=== PATIENT | female | born 1990 | race Caucasian/White ===

== ENCOUNTER 2019-02-04 11:53 | Emergency (ER) | payer OTHER, BC, SELFPAY ==
[2019-02-04 11:54] VITALS: BP 164/90; PULSE 81; RESP 16; TEMP 36.4; O2SAT 99; BMI 41.0
--- NOTE | 2019-02-04 12:40 | ED.DCSUM_ITS ---
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 [employer] cat bit her left hand she merely washed her hand she is brought to hospital for evaluation, no past edition of the complaints tetanus is up-to-date Physical Examination: [] Vital signs within normal range afebrile General, no distress resting comfortably HEENT is generally unremarkable The neck is supple no adenopathy Cardiovascular, regular rate and rhythm Lungs, clear bilateral Abdomen, soft nontender Extremities, muscle surface of left hand there are scattered abrasions are made there may be one tiny puncture hand functions fully normal neurovascular function is normal as well no signs of active infection no neuro tenderness injury Neurologic, awake alert answering questions appropriately moving all 4 extremities Test Results: [] Emergency Department Course and Treatment: [] Given all of the above x-rays were ordered, but she refused x-ray, we cleansed the wound had and the patient irrigate wash with soap, she started on doxycycline clindamycin at her request due to intolerance to Augmentin she is familiar with the concept of deep-seated infection other complication Bites she is referred to [facility] and her family physicians for further management Treatment Plan: [] Disposition: [] Home stable Impression: [] cat bite left hand This note was generated with [employer] dictation software. It may contain incorrect words, spelling, and punctuation that were not noted in review of the chart prior to signing ED Disposition - Plan for ED Patient: Instructions: ED Bite Cat Prescriptions: Doxycycline 100 mg PO BID #20 cap Clindamycin HCl [Cleocin] 300 mg PO Q6H #40 cap Referrals: NOT,DEFINED [Primary Care Provider] -
--- NOTE | 2019-02-04 13:00 | ED.RN ---
PT REFUSED HAND XRAY.
[2019-02-04] MEDS: Clindamycin HCl 150 MG Capsule 300 MG PO (14:34)
[2019-02-04] MEDS: Doxycycline 100 MG CAPSULE PO (14:34)
== END 2019-02-04 14:38 | disposition home or self-care (01) ==
LOC: ED 13:16
PROVIDERS: Emergency Provider Emergency Medicine
DX: S60.512A Abrasion of left hand, initial encounter (principal); W55.01XA Bitten by cat, initial encounter; Y93.9 Activity, unspecified; Y92.89 Other specified places as the place of occurrence of the external cause; Y99.9 Unspecified external cause status
CPT/HCPCS: 99283